=== PATIENT | female | born 1985 | race Caucasian/White ===

== ENCOUNTER 2019-10-07 12:32 | Outpatient (CLI) | payer OTHER, SELFPAY ==
--- NOTE | ~2019-10-07 | US_ITS ---
EXAMINATION: US pelvic complete w TV DATE: 10/07/2019 13:18 INDICATION: Menometrorrhagia Comparison:Excessive and frequent menstruation TECHNIQUE: Multiple transabdominal and endovaginal sonographic images of the pelvis performed. FINDINGS: The uterus measures 8.5 x 3.9 x 4.4 cm. The endometrial complex measures 4 mm. The right ovary measures 1.9 x 1.6 x 1.5 cm and the left ovary measures 1.5 x 1.4 x 2 cm. There are small follicles in each ovary. There is no free fluid in the pelvis. There are no abnormal masses seen on either side. IMPRESSION: 1. Normal pelvic ultrasound. Reviewed, dictated and finalized at location A.
== END 2019-10-07 12:33 | disposition home or self-care (01) ==
LOC: ANHIMG 12:37
PROVIDERS: PCP Internal Medicine; Visit Provider Obstetrics & Gynecology
DX: N92.1 Excessive and frequent menstruation with irregular cycle (principal)
CPT/HCPCS: 76830; 76856

== ENCOUNTER 2020-08-25 07:23 | Outpatient (CLI) | payer OTHER, SELFPAY ==
[2020-08-25 07:43] LABS: Basophils Percent Auto 0.7 % (0.2-1.2); Eosinophils Absolute Auto 0.1 K/mm3 (0-0.3); Eosinophils Percent Auto 1.7 % (0-4.4); Hematocrit 39.2 % (37.0-47.0); Hemoglobin 13.1 g/dL (12.0-15.0); Immature Granulocyte Absolute 0.01 K/mm3 (0.00-0.031); Immature Granulocyte Percent A 0.2 % (0-0.5); Lymphocytes Absolute Auto 2.25 K/mm3 (0.9-3.2); Lymphocytes Percent Auto 37.3 % (18.3-44.2); Mean Corpuscular HGB Conc 33.4 g/dl (32-36); Mean Corpuscular Hemoglobin 27.9 pg (26-34); Mean Corpuscular Volume 83.6 fl (80-100); Mean Platelet Volume 8.7 fl (7.4-10.4); Monocytes Absolute Auto 0.3 K/mm3 (0.1-0.6); Monocytes Percent Auto 5.1 % (2.6-8.5); Neutrophils Absolute Auto 3.3 K/mm3 (1.3-6.7); Platelet Count Result 302 k/mm3 (150-375); Red Blood Count 4.69 M/mm3 (4.2-5.4); Red Cell Distribution Width 13.1 % (11.5-14.5)
[2020-08-25 07:55] LABS: Alanine Aminotransferase 16 U/L (4-35); Alkaline Phosphatase 44 U/L (38-126); Anion Gap 7 mmol/L (8-16); Aspartate Amino Transferase 22 U/L (14-36); Bilirubin,Total 0.1 mg/dL (0.2-1.3); Blood Urea Nitrogen 8 mg/dL (7-17); Calcium 8.4 mg/dL (8.4-10.2); Carbon Dioxide 24 mmol/L (22-30); Chloride 109 mmol/L (98-107); Cholesterol 133 mg/dL (0-200); Estimated Glomerular Filt Rate > 60; Glucose 99 mg/dL (65-105); HDL Direct 46 mg/dL; Sodium 140 mmol/L (137-145); Triglycerides 117 mg/dL (<150)
[2020-08-25 08:06] LABS: LDL Cholesterol Direct 66 mg/dL
[2020-08-25 10:32] LABS: Free T4 Free Thyroxine Reflex 0.95 ng/dL (0.78-2.19)
[2020-08-29 06:00] LABS: Triiodothyronine T3 Free 3.8 pg/mL (2.3-4.2)
== END 2020-08-25 07:24 | disposition home or self-care (01) ==
PROVIDERS: PCP Internal Medicine; Visit Provider Internal Medicine
DX: Z00.00 Encounter for general adult medical examination without abnormal findings (principal)
CPT/HCPCS: 36415; 80053; 80061; 84439; 84443; 84480; 84481; 85025

== ENCOUNTER 2020-11-26 10:31 | Outpatient (CLI) | payer OTHER, SELFPAY ==
[2020-11-26 11:49] LABS: Thyroid Stimulating Hormone 0.732 uIU/mL (0.465-4.680)
[2020-11-26 12:19] LABS: Free T4 Free Thyroxine 1.13 ng/mL (0.78-2.19)
[2020-11-30 04:13] LABS: Triiodothyronine T3 Free 3.3 pg/mL (2.3-4.2)
== END 2020-11-26 10:32 | disposition home or self-care (01) ==
LOC: ANHLAB 10:33
PROVIDERS: PCP Internal Medicine; Visit Provider Internal Medicine
DX: R89.9 Unspecified abnormal finding in specimens from other organs, systems and tissues (principal)
CPT/HCPCS: 36415; 84439; 84443; 84481

== ENCOUNTER 2023-11-14 09:11 | Outpatient (CLI) | payer OTHER, SELFPAY ==
--- NOTE | ~2023-11-14 | US_ITS ---
EXAMINATION: US thyroid DATE: 11/14/2023 09:25 INDICATION: Hypothyroidism. TECHNIQUE: Multiple ultrasound images of the thyroid were obtained. COMPARISON: None. FINDINGS: The right thyroid lobe measures 4.6 x 1.1 x 1.9 cm. The left thyroid lobe measures 4.7 x 1.2 x 1.7 c m. There is normal echotexture and echogenicity throughout the thyroid gland. No discrete nodules id entified. Normal vascular flow is present. IMPRESSION: 1. Normal thyroid. Reviewed, dictated and finalized at location A. IMPRESSION: 1. Normal thyroid.
== END 2023-11-14 09:12 ==
LOC: MICIMG 09:11
PROVIDERS: PCP Internal Medicine; Visit Provider Internal Medicine
DX: E03.9 Hypothyroidism, unspecified (principal)
CPT/HCPCS: 76536

== ENCOUNTER 2024-03-01 10:09 | Outpatient (CLI) | payer OTHER, SELFPAY ==
--- NOTE | ~2024-03-01 | US_ITS ---
EXAMINATION: US pelvic complete w TV INDICATION: Menorrhagia Comparison:No prior studies for comparison. TECHNIQUE: Multiple transabdominal and endovaginal sonographic images of the pelvis performed. FINDINGS: The uterus measures 8.6 x 5.1 x 4.7 cm. There is a uterine fibroid measuring 4 x 3.5 x 3.4 cm anteriorly in the uterus. The endometrial complex measures 5 mm. The right ovary is not visualized. The left ovary measures 1.7 x 2 x 1.6 cm without significant mass. Normal Doppler signal in the left ovary. There is no free fluid in the pelvis. There are no abnormal masses seen on either side. IMPRESSION: 1. Uterine fibroid located anteriorly measuring 4 cm. Reviewed, dictated and finalized at location B.
== END 2024-03-01 10:10 | disposition home or self-care (01) ==
PROVIDERS: PCP Obstetrics & Gynecology; Visit Provider Obstetrics & Gynecology
DX: N92.0 Excessive and frequent menstruation with regular cycle (principal); N92.1 Excessive and frequent menstruation with irregular cycle; D25.9 Leiomyoma of uterus, unspecified
CPT/HCPCS: 76830; 76856

== ENCOUNTER 2024-03-11 13:53 | Outpatient (CLI) | payer OTHER, SELFPAY ==
--- NOTE | 2024-03-11 14:07 | ECG_ITS ---
Test Date: 2024-03-11 14:18:58 Measurements Intervals [place] Rate: 71 P: 9 WA: 144 QRS: 15 QRSD: 98 T: 8 QT: 390 QTc: 424 Interpretive Statements SINUS RHYTHM INCOMPLETE RIGHT BUNDLE BRANCH BLOCK BORDERLINE ST-T WAVE ABNORMALITY- ANT/INF LEADS BASELINE ARTIFACT- I, III, AVR, AVL, AVF BORDERLINE ECG No previous ECG available for comparison Electronically Signed On 03-11-2024 14:23:51 CDT by Ervin River D.O.
[2024-03-11 15:13] LABS: Hematocrit 32.2 % (37.0-47.0); Hemoglobin 9.9 g/dL (12.0-15.0)
== END 2024-03-11 13:54 | disposition home or self-care (01) ==
LOC: ANHSURGERY 13:56
PROVIDERS: Anesthesiology; PCP Internal Medicine; Visit Provider Obstetrics & Gynecology
DX: D64.9 Anemia, unspecified (principal); I10 Essential (primary) hypertension; Z01.818 Encounter for other preprocedural examination; I45.10 Unspecified right bundle-branch block
CPT/HCPCS: 36415; 85014; 85018; 93005

== ENCOUNTER 2024-03-17 00:23 | Day surgery (SDC) | payer OTHER, SELFPAY ==
[2024-03-08 10:23] VITALS: BMI 33.9
--- NOTE | 2024-03-08 10:40 | SUR.PREOP ---
Report to the Outpatient Waiting Room, entrance under the green pavilion located off [facility], at time 0615 on date 03/17/2024. Planned Procedure Time: 0815.? Time changes happen often and if your time is changed the preop area will call you the afternoon before. - You and your visitor will be asked to self-screen and do not enter if you have any COVID symptoms. Please call surgeon if you need to reschedule. - A mask is optional within the hospital at this time. Patients may have clear liquids (water, carbonated beverages, clear teas, apple juice) until 3 hours prior to surgery with a maximum of 20 ounces. - No food from midnight until time of surgery and no smoking - Infants may have breast milk until 4 hours before surgery, infant formula 6 hours prior to surgery. - Children will be allowed to drink immediately following surgery.? If applicable, please bring a bottle or sippy cup to assist with drinking. Juice, water, soda, and popsicles are readily available.? For infants on formula, please bring formula the day of surgery.? Pacifiers are allowed. Take only the following medications with a SIP of water on the morning of surgery: carvedilol DO NOT STOP ANY OF YOUR OTHER PRESCRIPTION MEDICATIONS PRIOR TO SURGERY EXCEPT THE FOLLOWING Medications to discontinue per physician N/A Date to take last dose N/A Please no make-up, nail luxembourgish, hairspray, perfume, deodorant, or body powder the day of surgery.? No jewelry (including any body piercings) or valuables the day of surgery, leave them at home.? Please take a shower or bath the night before, or the morning of, surgery with an antibacterial soap.? Wear comfortable, loose fitting clothing.? Children are encouraged to wear pajamas. - Jewelry must be removed prior to entering the operating room.? Rings and piercings that are not removed may be cut off. - The hospital will not accept responsibility for valuables.? - Please leave all valuables, including medications, at home the day of surgery. If you are going home after surgery, a licensed public transit trolley driver must drive you home.? - NO public transportation without another adult if you receive anesthesia. - We recommend that an adult stay with you for 24 hours following discharge. - We also recommend that you do not drive, make important decision, drink alcoholic beverages, or take any drugs that were not prescribed by your health care provider for at least 24 hours after your discharge time. For Pediatric surgeries, we recommend two adults accompany the child home. Follow any additional instructions given to you from your surgeon. Telephone instructions given to Jaqui Butler and asked if any additional questions and then verbalized understanding. Patient advised to call surgeon office or pre surgery nurse liaison [phone] if any additional questions.
[2024-03-17] VITALS (7 sets, daily range): BP systolic 109–137; BP diastolic 66–88; PULSE 66–95; RESP 14–18; TEMP 36.1–36.4; O2SAT 98–100; BMI 33.9
--- NOTE | 2024-03-17 07:03 | P.PNAN_ITS ---
Anes - Initial Pre Proc Eval Procedure: Operation Date: 03/17/24 08:15 Proposed Procedures p Hysteroscopy Dilation and Curettage with Mone Endometrial Ablation, - Jarrod Mackey MD s Bilateral Laparoscopic Salpingectomy - Jarrod Mackey MD Date/Time: 03/17/24 07:03 Surgeon: Jarrod Mackey MD Pre Op Diagnosis: abnormal uterine bleeding Patient Data Age: 38 Gender: F Height: 1.75 m Weight: 104.3 kg Allergies Allergy/AdvReac Type Severity Reaction Status Date / Time azithromycin Allergy Mild Rash Verified 03/08/24 10:21 erythromycin base Allergy Unknown Rash Verified 03/08/24 10:21 Home Medications Medication Instructions Recorded Confirmed Type carvedilol 12.5 mg tablet (Coreg) 12.5 mg PO Q12H 02/25/24 03/08/24 History fluoxetine 20 mg capsule 20 mg PO DAILY 02/25/24 03/08/24 History desogestrel-e.estradiol 0.15 1 tablet PO DAILY #84 tabs 03/08/24 Rx mg-0.02 mg(21)/e.estrad 0.01 mg(5) tablet (Viorele (28)) ferrous sulfate 325 mg (65 mg 325 mg PO BID 03/08/24 03/08/24 History iron) tablet (FeroSul) Patient hx anesthesia problems: none Family hx anesthesia problems: none Results Review: All pre-operative results and documents have been reviewed as part of the pre- operative evaluation. [facility] Past Medical History Medical History Abnormal Pap smear of cervix (~2010) ascus Anxiety Chlamydia (~2009) Depression (~2009) Empty sella syndrome (~2017) HPV in female Hypothyroidism rx meds Migraines MVP (mitral valve prolapse) Nexplanon insertion (06/10/18) Nexplanon removal (09/30/18) Surgical History Surgical History H/O LEEP (~2004) History of (09/27/15) History of colposcopy with cervical biopsy (~2004) Family History Family History Mother Hypertension Arthritis Father Leukemia Social History Social History Smoking status: Never smoker Second hand tobacco smoke exposure: Yes Alcohol intake: current Drinks per week: 1 Alcohol use details: rare Substance use: never Substance use type: does not use Do You Feel Safe in your Home?: Yes Lack of Transportation: No Lack of Food: Never True Current Housing: I Have Housing Concerned About Future Housing: No Difficulty Paying Gas/Electric Bills: No Difficulty Paying for Meds: No Currently Unemployed: No Education: Associate Degree Difficulty w/ Childcare or Family Care: No Living arrangements: with family Additional living arrangements comments: Occupation/Education: occupation Additional occupation/education comments: nurse Gender identity (if verbalized by the patient): Female Sexual Orientation (if Verbalized by the Patient): Straight or Heterosexual Anes - Eval Final PreProcedure Day of Procedure 03/17/24 07:03 Patient weight: obese Heart: regular rate and rhythm Lungs: clear to auscultation Airway: Mallampati scale class II Neurological: alert and oriented Last oral intake: >/= 8 hours ASA classification: II Emergent: no Anesthetic plan: proceed Anesthesia type and monitoring: general ETT Results Review: All pre-operative results and documents have been reviewed as part of the pre- operative evaluation. Informed Consent: The patient's anesthetic plan and its attendant risks and benefits were discussed with the patient/family/POA. Questions were solicited and answers provided to the satisfaction of the patient/family/POA.
--- NOTE | 2024-03-17 07:19 | WPDHPUPDATE1 ---
History and Physical Update Update Date/Time: 03/17/24 07:19 Proceed with: 1. hysteroscopy with D&C 2. endometrial ablation 3. laparoscopic bilateral salpingectomy History and Physical has been reviewed, including an updated exam of the patient. There are NO changes in the patient's condition. Risks, benefits, and alternatives have been discussed and questions answered. Patient agrees to proceed with procedure.
[2024-03-17] MEDS: LACTATED RINGERS 1,000 ML 30 ML IV CONT (07:30)
[2024-03-17] MEDS: SCOPOLAMINE 1 MG PATCH 1 PATCH TRANSDERM (07:43)
[2024-03-17] MEDS: ACETAMINOPHEN 500 MG TABLET 1000 MG PO (07:44)
[2024-03-17] MEDS: KETOROLAC 15 MG/ML VIAL (*BKC) IV PUSH (07:44)
[2024-03-17] MEDS: ceFAZolin 2 GM/D5W 50 ML 2 GM/50 ML BAG IVPB (08:19)
[2024-03-17 08:41] LABS: BEDSIDEPREGUCG Negative (Negative)
--- NOTE | 2024-03-17 09:35 | W.PM.PROC2 ---
Procedure Note - Detailed Date of Procedure 03/17/24 Pre-op Diagnosis 1. Menometrorrhagia 2. dysmenorrhea 3. Uterine fibroid 4. undesired fertility Post-op Diagnosis Same Procedure Performed 1. Hysteroscopy with uterine curettings 2. Endometrial ablation 3. Bilateral salpingectomy laparoscopic Surgeon Jarrod Mackey MD Anesthesia General Findings Thickened endometrial tissue. Laparoscopic evaluation without abnormality. Description of Procedure Patient prepped and draped usual manner for this procedure. Cervical instruments were placed for uterine mobility throughout the case. Abdominal trocar sites were marked and trocars were placed under direct visualization. Using the LigaSure instrument the mesial salpinx was cauterized and cut bilaterally and tubes removed without difficulty. There was no bleeding throughout this procedure. Attention was then placed to the cervix which was dilated and hysteroscope was placed revealed thickened tissue. Curettings were obtained with good sampling noted. Mone instrument was then placed, cavity assessment performed, instrument was activated. At the end of the procedure destruction was noted throughout. Patient type procedure well and was sent to recovery room in stable condition. Estimated Blood Loss 10 Drains No Packing No Pathology Yes Complications No immediate complications Condition Stable Disposition PACU [facility] Billing Surgery - Charge Forward: Surgery Billing
[2024-03-17] MEDS: oxyCODONE HCL (*CRX) 5 MG TAB IR PO (10:20)
== END 2024-03-17 10:37 | disposition home or self-care (01) ==
PROVIDERS: PCP Internal Medicine; Visit Provider Obstetrics & Gynecology
PROC: 0U5B8ZZ Destruction of Endometrium, Via Natural or Artificial Opening Endoscopic (ICD-10-PCS; CPT 58563; principal; 2024-03-17 08:15)
PROC: (CPT 49320; 2024-03-17 08:15)
DX: N84.0 Polyp of corpus uteri (principal); N72 Inflammatory disease of cervix uteri; E03.9 Hypothyroidism, unspecified; F41.9 Anxiety disorder, unspecified; F32.A Depression, unspecified; E23.6 Other disorders of pituitary gland; G89.18 Other acute postprocedural pain; E66.9 Obesity, unspecified; Z68.34 Body mass index [BMI] 34.0-34.9, adult; Z98.890 Other specified postprocedural states; Z98.891 History of uterine scar from previous surgery; Z86.79 Personal history of other diseases of the circulatory system
CPT/HCPCS: 58563; 58661; 88302; 88305; A9270; J0690; J1100; J1885; J2250; J2405; J2704; J3010; J7120

== ENCOUNTER 2025-03-24 12:24 | Outpatient (CLI) | payer OTHER, SELFPAY ==
--- NOTE | ~2025-03-24 | MM_ITS ---
EXAMINATION: MM screening verito BI w sarah HISTORY: Screening TECHNIQUE: Craniocaudal and mediolateral oblique 3-D tomosynthesis images were obtained and synthetic 2-D images were generated. CAD analysis was submitted and interpreted. COMPARISON: No prior mammogram is available for comparison at this institution. BREAST PARENCHYMAL COMPOSITION: Dense: The breasts are extremely dense, which lowers the sensitivity of mammography. FINDINGS: There is no evidence of suspicious mass, calcification, or architectural distortion to suggest malignancy in either breast. There has been no suspicious interval change. IMPRESSION: 1. No mammographic evidence of malignancy. 2. Recommend routine screening mammography in one year. BI-RADS Category 1: Negative Reviewed, dictated and finalized at location B. [employer]
== END 2025-03-24 12:25 | disposition home or self-care (01) ==
LOC: MICIMG 12:25
PROVIDERS: PCP Obstetrics & Gynecology; Visit Provider Obstetrics & Gynecology
DX: Z12.31 Encounter for screening mammogram for malignant neoplasm of breast (principal)
CPT/HCPCS: 77063; 77067